=== PATIENT | female | born 1940 | race Caucasian/White ===

== ENCOUNTER 2023-01-28 12:31 | Outpatient (CLI) | payer MEDICARE ==
--- NOTE | 2023-01-28 15:32 | XRAY Report ---
PROCEDURE: Cervical Spine Comp w/Flex/Ext INDICATIONS: CERVICAL, LUMBAR TECHNIQUE: 7 views of the cervical spine were obtained COMPARISON: X-ray thoracic spine 01/29/2020 FINDINGS: Bones: No fractures or dislocations to the C7-T1 level. No suspicious bony lesions. Multilevel dege nerative space narrowing changes are present most severe at C5-6 and C6-7. Multilevel uncovertebral a rthropathy is present. Foramina are poorly visualized secondary to positioning. However, there is fel t to be at least moderate multilevel foraminal narrowing most extensive from C4-5 through C6-7 bilate rally. There is normal range of motion between flexion and extension, with preserved normal bony alig nment. Soft tissues: Prevertebral soft tissues are normal in thickness. IMPRESSION: Somewhat limited exam secondary to patient positioning. However, marked degenerative ila nges are felt to be present from C4-5 through C6-7. Reviewed by: Darlene Kincaid MD on 01/28/2023 3:31 PM PDT Approved by: Darlene Kincaid MD on 01/28/2023 3:31 PM PDT Station ID: [id number]
--- NOTE | 2023-01-28 15:47 | XRAY Report ---
PROCEDURE: Thoracic Spine 2 View INDICATIONS: CERVICAL, LUMBAR TECHNIQUE: 2 views of the thoracic spine were acquired. COMPARISON: None. FINDINGS: Bones: No fractures or dislocations. No suspicious bony lesions. 12 pairs of ribs are noted, and a ppear intact where visualized. Multilevel degenerative disc space narrowing. Soft tissues: No paravertebral stripe thickening. IMPRESSION: Multilevel degenerative changes. Reviewed by: Darleen Kincaid MD on 01/28/2023 3:46 PM PDT Approved by: Darlene Kincaid MD on 01/28/2023 3:46 PM PDT Station ID: [id number]
--- NOTE | 2023-01-28 15:48 | XRAY Report ---
PROCEDURE: Lumbar Spine 2 View INDICATIONS: CERVICAL LUMBAR TECHNIQUE: 2 views of the lumbar spine were acquired. COMPARISON: X-ray thoracic spine 01/26/2023 FINDINGS: Bones: 5 [id number] vertebrae are present. Rightward scoliotic curvature is present. There is t race retrolisthesis of L3 on L4 and trace anterolisthesis of L4 on L5. There is wedge deformity at L1 of indeterminate age. Multilevel disc and foraminal narrowing are present most severe at L5-S1. No v ertebral body compression fractures. No suspicious bony lesions. Soft tissues: Overlying bowel gas pattern is normal. No suspicious soft tissue calcifications. IMPRESSION: Wedge deformity at L1 of indeterminate age. Recommend correlation point tenderness. Multilevel degenerative changes most severe at L5-S1. Reviewed by: Darlene Kincaid MD on 01/28/2023 3:47 PM PDT Approved by: Darlene Kincaid MD on 01/28/2023 3:47 PM PDT Station ID: [id number]
== END 2023-01-28 12:32 | disposition home or self-care (01) ==
LOC: DI.S 12:31
PROVIDERS: ATTEND Chiropractor
DX: M47.812 Spondylosis without myelopathy or radiculopathy, cervical region (principal); M47.814 Spondylosis without myelopathy or radiculopathy, thoracic region; M47.816 Spondylosis without myelopathy or radiculopathy, lumbar region; M47.817 Spondylosis without myelopathy or radiculopathy, lumbosacral region; M48.56XA Collapsed vertebra, not elsewhere classified, lumbar region, initial encounter for fracture